=== PATIENT | male | born 1945 | race Caucasian/White ===

== ENCOUNTER 2017-09-03 07:29 | Day surgery (SDC) | payer MEDICARE, BC ==
[2017-09-03] MEDS ORDERED: Lactated Ringers 1,000 ML IV SCH (07:45)
[2017-09-03] MEDS ORDERED: Sodium Chloride 0.9% 10 ML Syringe FLUSH PRN (07:45)
[2017-09-03] MEDS ORDERED: Propofol 1,000 MG/100 ML SDV IV ONE (09:00)
--- NOTE | 2017-09-03 09:40 | PCM.OPNOTE ---
- General Post-Op/Procedure Note Date of Surgery/Procedure: 09/03/17 Operative Procedure(s): c scope Findings: sigmoid diverticulosis Pre Op Diagnosis: screening Post-Op Diagnosis: diverticulosis Anesthesia Technique: MAC Primary Surgeon: Maxwell Melara Anesthesia Provider: Anuel De La O Complications: None Condition: Good Free Text/Narrative:: see dictation
--- NOTE | 2017-09-03 10:44 | OR ---
DATE OF OPERATION: 09/03/2017 SURGEON: Maxwell Melara MD PROCEDURE PERFORMED: Colonoscopy. PREOPERATIVE DIAGNOSIS: Need for screening C-scope. POSTOPERATIVE DIAGNOSIS: Sigmoid diverticulosis. INDICATIONS FOR PROCEDURE: This is a 71-year-old white male, who is referred for a screening colonoscopy. He was offered and accepted same. DESCRIPTION OF PROCEDURE: After an excellent IV sedation was administered, digital rectal exam was performed. No marked abnormality was noted. Flexible colonoscope was inserted and advanced without difficulty to the cecum. The prep was excellent and the following findings were noted. Ascending colon was unremarkable. Transverse colon was unremarkable. Descending colon, moderate sigmoid diverticulosis. Rectum and anus were unremarkable. Colon was deflated as the scope was removed. The patient tolerated the procedure well and was taken to recovery room in good condition. /[id number] /FELICEL
== END 2017-09-03 10:40 | disposition home or self-care (01) ==
LOC: FB.SDS 07:29
PROVIDERS: ATTEND Surgery
DX: Z12.11 Encounter for screening for malignant neoplasm of colon (principal); K57.30 Diverticulosis of large intestine without perforation or abscess without bleeding; E78.4 Other hyperlipidemia; E66.9 Obesity, unspecified; I10 Essential (primary) hypertension; H52.4 Presbyopia; H40.9 Unspecified glaucoma; F17.210 Nicotine dependence, cigarettes, uncomplicated; Z79.899 Other long term (current) drug therapy; Z79.82 Long term (current) use of aspirin; Z90.49 Acquired absence of other specified parts of digestive tract
CPT/HCPCS: 00810; 45378; J7120; J3490

== ENCOUNTER 2020-04-15 15:05 | Emergency (ER) | payer MEDICARE, BC ==
[2020-04-15] MEDS ORDERED: Acetaminophen/HYDROcodone 325-5 MG Tab PO ONE (15:06)
[2020-04-15] MEDS ORDERED: Ibuprofen 600 MG Tab PO ONE (15:18)
--- NOTE | 2020-04-15 15:19 | EDM.PDOC ---
ED HPI GENERAL MEDICAL PROBLEM - General Time Seen by Provider: 04/15/20 15:08 Source of Information: Reports: Patient History Limitations: Reports: No Limitations - History of Present Illness INITIAL COMMENTS - FREE TEXT/NARRATIVE: pt comes in with c/o right knee pain and inability to extended, tells me he was going down the stairs when he felt suddenly his right knee giving out, he was able to hold him self down as he fell, denies any injuries from the fall and denies any other medical concerns. - Related Data Allergies Allergy/AdvReac Type Severity Reaction Status Date / Time No Known Allergies Allergy Verified 09/03/17 08:25 Home Meds: Home Meds Aspirin [Halfprin] 81 mg PO DAILY 09/02/17 [History] Carboxymethylcellulose Sodium [Refresh Liquigel 1%] 1 drop EYEBOTH ASDIRECTED PRN 09/02/17 [History] Latanoprost [Xalatan 0.005% Ophth Soln] 1 drop EYEBOTH BEDTIME 09/02/17 [History] Lisinopril 40 mg PO DAILY 09/02/17 [History] Multivitamin with Minerals [Multiple Vitamin] 1 tab PO DAILY 09/02/17 [History] Pravastatin [Pravachol] 40 mg PO DAILY 09/02/17 [History] atenoloL [Tenormin] 100 mg PO DAILY 09/02/17 [History] hydroCHLOROthiazide [Hydrochlorothiazide] 12.5 mg PO DAILY 09/02/17 [History] Past Medical History HEENT History: Reports: Cataract, Glaucoma, Other (See Below) Other HEENT History: MYOPIA; PRESBYOPIA-BOTH; ASTIGMATISM-BOTH Cardiovascular History: Reports: High Cholesterol, Hypertension Respiratory History: Reports: None Gastrointestinal History: Reports: None Genitourinary History: Reports: None [employer] History: Reports: None Musculoskeletal History: Reports: None Neurological History: Reports: None Psychiatric History: Reports: None Endocrine/Metabolic History: Reports: None Hematologic History: Reports: None Immunologic History: Reports: None Oncologic (Cancer) History: Reports: None Dermatologic History: Reports: None - Past Surgical History Head Surgeries/Procedures: Reports: None GI Surgical History: Reports: Appendectomy Social & Family History - Caffeine Use Caffeine Use: Reports: Coffee ED ROS GENERAL - Review of Systems Review Of Systems: See Below Constitutional: Reports: No Symptoms HEENT: Reports: No Symptoms Respiratory: Reports: No Symptoms Cardiovascular: Reports: No Symptoms GI/Abdominal: Reports: No Symptoms Musculoskeletal: Reports: Joint Pain Skin: Reports: No Symptoms Neurological: Reports: No Symptoms ED EXAM, GENERAL - Physical Exam Exam: See Below Exam Limited By: No Limitations General Appearance: Alert, No Apparent Distress, Other (pt appear comfortable on the wheel chair ) Eye Exam: Bilateral Eye: Normal Inspection Nose: Normal Inspection Throat/Mouth: Normal Inspection, Normal Oropharynx Head: Atraumatic, Normocephalic Neck: Normal Inspection, Supple, Non-Tender Respiratory/Chest: No Respiratory Distress, Lungs Clear, Normal Breath Sounds Cardiovascular: Normal Peripheral Pulses, Regular Rate, Rhythm GI/Abdominal: Normal Bowel Sounds, Soft, Non-Tender Back Exam: Normal Inspection, Full Range of Motion Extremities: Other (pt has the patella pulled distally , and unable to extend right knee , no tendernss or joint effusion noted. RLE is NVI. ) Neurological: Alert, Oriented, CN II-XII Intact Skin Exam: Warm, Dry Course - Vital Signs Text/Narrative:: xray shows no fractures , pt has quadriceps rupture , was placed in a knee immobilizer and provided with crutches . Dr Carnes/ sarah Tena was consulted and would like to see patient at clinic this week. rest , elevation antiinflammatories were recommended. Departure - Departure Time of Disposition: 16:12 Disposition: Home, Self-Care 01 Clinical Impression: Quadriceps tendon rupture - Discharge Information Referrals: PCP,None [Primary Care Provider] -
--- NOTE | 2020-04-16 10:31 | CR ---
INDICATION: Fall, pain, deformity proximal patella. RIGHT KNEE: Three views of the right knee were obtained 04/15/20 - no comparison. As visualized, femorotibial and patellofemoral joint spaces appear to be well maintained. There is a moderately large spur off the cranial anterior aspect of the patella at the tendinous insertion. A definite acute fracture or dislocation was not identified in that area. A small bony-appearing density is noted inferior to the patella, which could represent a minimal avulsion chip fracture fragment or possibly an osteochondral joint mouse. Overall, bone density appeared to be normal. Arterial calcifications are noted posteriorly. No definite joint effusion was seen. IMPRESSION: 1. No definite acute fracture or dislocation but difficult to exclude a tiny avulsion chip fracture fragment versus an intra-articular osteochondral joint body of tiny size inferior to the patella. If symptoms persist - if soft tissue abnormality is suspected clinically, MRI may be helpful for further evaluation. 2. Patellar spur producing some deformity - this is a chronic process. 3. ASD. MTDD
== END 2020-04-15 16:45 | disposition home or self-care (01) ==
LOC: FB.ED 15:05
DX: S76.111A Strain of right quadriceps muscle, fascia and tendon, initial encounter (principal); I10 Essential (primary) hypertension; Z79.82 Long term (current) use of aspirin; Z79.899 Other long term (current) drug therapy; W10.9XXA Fall (on) (from) unspecified stairs and steps, initial encounter
CPT/HCPCS: 73562; 99283; A9270

== ENCOUNTER 2022-06-09 14:00 | Observation (INO) | payer MEDICARE, BC ==
[2022-06-09] MEDS ORDERED: Sodium Chloride 0.9% 1,000 ML IV ONE (14:25)
[2022-06-09] MEDS ORDERED: NS + KCl 20mEq/L 1,000 ML IV ONE ×2 (18:30→22:45)
[2022-06-09] MEDS ORDERED: Lisinopril 20 MG Tab PO ONE (21:00)
[2022-06-09] MEDS ORDERED: Enoxaparin 40 MG/0.4 ML Syringe SUBCUT ONE (21:00)
[2022-06-10] MEDS ORDERED: Lisinopril 20 MG Tab PO ONE (09:00)
[2022-06-11 19:00] LABS: ESTIMATED GFR 92 mL/min (>60)
[2022-06-11 19:08] LABS: ESTIMATED GFR 92 mL/min (>60)
[2022-06-11 19:33] LABS: ESTIMATED GFR 92 mL/min (>60)
[2022-06-12 03:25] LABS: ESTIMATED GFR 95 mL/min (>60)
== END 2022-06-10 10:10 | disposition home or self-care (01) ==
LOC: FB.MS 14:00
PROVIDERS: ADMIT Family Medicine; ATTEND Family Medicine
DX: E87.1 Hypo-osmolality and hyponatremia (principal); I10 Essential (primary) hypertension; E78.5 Hyperlipidemia, unspecified; H40.9 Unspecified glaucoma; E83.51 Hypocalcemia; E66.9 Obesity, unspecified; Z79.899 Other long term (current) drug therapy; Z79.82 Long term (current) use of aspirin; Z88.5 Allergy status to narcotic agent; Z88.8 Allergy status to other drugs, medicaments and biological substances; Z90.49 Acquired absence of other specified parts of digestive tract; Z98.890 Other specified postprocedural states
CPT/HCPCS: 36415; 80048; 80053; 81001; 84300; 85025; 87086; 99217; 99219; A9270-GY; J1650; J3480; J7030